=== PATIENT | male | born 1970 | race Two or more races ===

== ENCOUNTER 2016-10-03 11:55 | Emergency (ER) | payer OTHER ==
[~2016-10-03] VITALS: Ht 160 cm; Wt 72.6 kg
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
[2016-10-03] MEDS ORDERED: ATOR10TA PO (12:08)
[2016-10-03] MEDS ORDERED: LEVO88TA5 PO (12:08)
[2016-10-03] MEDS ORDERED: HYDROCODONE/APAP 5/325MG 1 EACH TABLET ONE (12:24)
[2016-10-03] MEDS ORDERED: HYDROCODONE/APAP 5/325MG 1 EACH TABLET PO ONE (12:30)
--- NOTE | 2016-10-03 13:10 | NUR ---
PATIENT CAME BACK FROM XRAY.
--- NOTE | 2016-10-03 13:37 | NUR ---
Patient is resting comfortably in bed with eyes closed. Easily aroused. VSS
--- NOTE | 2016-10-03 13:58 | NUR ---
DR SALGADO AT BS FOR AN UPDATE AND RE-EVAL.
--- NOTE | 2016-10-03 14:09 | NUR ---
Patient discharged to home in stable condition. Written and verbal after care instructions given. Patient verbalizes understanding of instruction.
[2016-10-03 14:11] VITALS: BP 107/70
== END 2016-10-03 14:12 | disposition home or self-care (01) ==
LOC: ER 11:57
DX: S16.1XXA Strain of muscle, fascia and tendon at neck level, initial encounter (principal); S20.211A Contusion of right front wall of thorax, initial encounter; R05 Cough; V43.52XA Car driver injured in collision with other type car in traffic accident, initial encounter; Y93.89 Activity, other specified; Y92.413 State road as the place of occurrence of the external cause; Y99.8 Other external cause status
CPT/HCPCS: 71100-TC; 72050-TC; A4606; Z7610

== ENCOUNTER 2017-01-06 14:23 | Emergency (ER) | payer OTHER ==
[~2017-01-06] VITALS: Ht 160 cm; Wt 68.0 kg
[~2017-01-06 14:23] MED LIST: ATOR10TA PO; LEVO88TA5 PO
[2017-01-06 14:30] VITALS: BP 100/60
== END 2017-01-06 15:56 | disposition home or self-care (01) ==
LOC: ER 14:25
DX: M25.562 Pain in left knee (principal); E03.9 Hypothyroidism, unspecified
CPT/HCPCS: 29505; 73564; 99284; A4606; Z7610

== ENCOUNTER 2017-08-05 23:22 | Emergency (ER) | payer OTHER ==
[~2017-08-05] VITALS: Ht 162.6 cm; Wt 68.0 kg
[2017-08-06 00:16] VITALS: BP 111/71
[2017-08-06] MEDS ORDERED: GUAIFENESIN/D-METHORPHAN HB 5 ML UDC PO ONE (01:00)
[2017-08-06] MEDS ORDERED: GUAIFENESIN 300 MG/15 ML UDC ONE (01:15)
== END 2017-08-06 02:06 | disposition home or self-care (01) ==
LOC: ER 23:24
DX: R05 Cough (principal); J02.9 Acute pharyngitis, unspecified; H11.89 Other specified disorders of conjunctiva; E05.90 Thyrotoxicosis, unspecified without thyrotoxic crisis or storm
CPT/HCPCS: 71045-TC; A4606; Z7610

== ENCOUNTER 2018-04-15 11:58 | Emergency (ER) | payer OTHER ==
[~2018-04-15] VITALS: Ht 152.4 cm; Wt 65.8 kg
[2018-04-15 12:11] VITALS: BP 100/67
== END 2018-04-15 13:10 | disposition home or self-care (01) ==
LOC: ER 12:03
DX: M67.431 Ganglion, right wrist (principal); E05.90 Thyrotoxicosis, unspecified without thyrotoxic crisis or storm
CPT/HCPCS: 29125; 99283; A4606; Z7610

== ENCOUNTER 2018-06-10 22:42 | Emergency (ER) | payer OTHER ==
[~2018-06-10] VITALS: Ht 157.5 cm; Wt 69.9 kg
--- NOTE | 2018-06-10 22:45 | NUR ---
PT PRESENTED TO THE ER WITH A C/O LT AND RT SIDED ABD PAIN SINCE 1499. PT STATED THAT HE HAS N/V/D. PT AMBULATED TO THE BATHROOM AND A URINE SAMPLE WAS OBTAINED.
[2018-06-10] MEDS ORDERED: KETOROLAC TROMETHAMINE INJ 30 MG/ML VIAL ONE (23:19)
[2018-06-10] MEDS ORDERED: ONDANSETRON HCL/PF 4 MG/2 ML VIAL ONE (23:19)
[2018-06-10 23:23] LABS: BASOPHILS # (AUTO) 0.1 /CMM (0.0-0.2); BASOPHILS % (AUTO) 0.7 % (0.0-2.0); EOSINOPHILS % (AUTO) 3.7 % (0.0-6.0); HEMATOCRIT 46 % (39-51); LYMPHOCYTES # (AUTO) 2.5 /CMM (0.8-4.8); LYMPHOCYTES % (AUTO) 32.1 % (20.0-44.0); MEAN CORPUSCULAR HGB CONC 35 g/dl (31.0-36.0); MEAN CORPUSCULAR VOLUME 94 fL (80-96); MONOCYTES # (AUTO) 0.8 /CMM (0.1-1.30); MONOCYTES % (AUTO) 11.1 % (2.0-12.0); NEUTROPHILS % (AUTO) 52.4 % (43.0-81.0); PLATELET COUNT (AUTO) 193 /CMM (150-450); RED BLOOD CELL COUNT(AUTO) 4.96 MIL/uL (4.5-6.0); WHITE BLOOD COUNT (AUTO) 7.7 K/uL (4.3-11.0)
[2018-06-10] MEDS: IV NS 0.9% 1,000 ML BAG IV ONE (23:24)
[2018-06-10] MEDS: KETOROLAC TROMETHAMINE INJ 30 MG/ML VIAL IV ONE (23:24)
[2018-06-10] MEDS: ONDANSETRON HCL/PF 4 MG/2 ML VIAL IVP ONE (23:24)
[2018-06-10 23:31] LABS: CALCIUM, SERUM 8.9 mg/dL (8.5-10.1); CREATININE 1.2 mg/dL (0.6-1.3); POTASSIUM 3.8 mmol/L (3.5-5.1)
[2018-06-10 23:38] LABS: ALBUMIN 3.8 g/dL (3.4-5.0); BILIRUBIN,DIRECT 0.2 mg/dL (0.0-0.2); BILIRUBIN,TOTAL 1.1 mg/dL (0.2-1.0); TOTAL PROTEIN, SERUM 7.6 g/dL (6.4-8.2)
[2018-06-11 00:35] LABS: APPEARANCE,URINE CLEAR (CLEAR); BILIRUBIN,URINE NEGATIVE (NEGATIVE); BLOOD, URINE NEGATIVE Ery/uL (NEGATIVE); COLOR,URINE YELLOW (YELLOW); KETONES,URINE NEGATIVE (NEGATIVE); LEUKOCYTE ESTERASE ,URINE NEGATIVE (NEGATIVE); NITRITE, URINE NEGATIVE (NEGATIVE); PROTEIN,URINE NEGATIVE (NEGATIVE); UGLUCOSE NEGATIVE (NEGATIVE); UROBILINOGEN,URINE 0.2 EU/dL (0.2)
--- NOTE | 2018-06-11 01:04 | NUR ---
PT RETURNED FROM CT.
[2018-06-11 01:57] VITALS: BP 117/72
== END 2018-06-11 01:58 | disposition home or self-care (01) ==
LOC: ER 22:44
DX: R10.31 Right lower quadrant pain (principal); R10.32 Left lower quadrant pain; R19.7 Diarrhea, unspecified; E05.90 Thyrotoxicosis, unspecified without thyrotoxic crisis or storm; Z79.899 Other long term (current) drug therapy
CPT/HCPCS: 36415; 80048-TC; 80076-TC; 81000-TC; 83690-TC; 85025-TC; A4606; J1885; J2405; J7030; Z7610

== ENCOUNTER 2018-06-17 23:02 | Emergency (ER) | payer OTHER ==
[~2018-06-17] VITALS: Ht 160 cm; Wt 72.6 kg
--- NOTE | 2018-06-18 01:30 | NUR ---
Pt wakled in c/o itchiness on his left eye. Pt reports he has cloudy vision. Both eyes look red. visual Check done by DAINA Schwarz. Pt is A, O/4, able to ambulate indepently, breathing spontaneously to RA.
[2018-06-18] MEDS ORDERED: TETRACAINE HCL/PF 0.5% UD 2 ML BOTTLE ONE (01:45)
[2018-06-18] MEDS ORDERED: TETRACAINE HCL/PF 0.5% UD 2 ML BOTTLE LEFTEYE ONE (02:00)
[2018-06-18] MEDS ORDERED: TONO PEN in ED SUPPLY ONICELL 1 EA MC ONE (02:00)
--- NOTE | 2018-06-18 03:00 | NUR ---
Pt needs higher level of care for cloudy vision per Dr. Avilez, will be referred to Opthalmologist. Awaiting transfer.
--- NOTE | 2018-06-18 03:20 | NUR ---
Pt sleeping, eaasily arousable, denies left eye pain or itchiness. Both eyes still appear red.
--- NOTE | 2018-06-18 06:00 | NUR ---
Pt ambulated to BR by himself.
--- NOTE | 2018-06-18 07:14 | NUR ---
Endorsed pt to DAINA Leslie, for DARREL.
[2018-06-18 07:59] VITALS: BP 127/85
--- NOTE | 2018-06-18 08:19 | NUR ---
Patient discharged to home in stable condition. Written and verbal after care instructions given. Patient verbalizes understanding of instruction. Informed patient to call PMD to get an authorization from his insurance to see Dr. Walton (opthalmologist) and amenable.
== END 2018-06-18 08:19 | disposition home or self-care (01) ==
LOC: ER 23:05
DX: H54.62 Unqualified visual loss, left eye, normal vision right eye (principal); E05.90 Thyrotoxicosis, unspecified without thyrotoxic crisis or storm
CPT/HCPCS: A4606; Z7610

== ENCOUNTER 2019-06-09 20:28 | Emergency (ER) | payer OTHER ==
[~2019-06-09] VITALS: Ht 157.5 cm; Wt 63.5 kg
--- NOTE | 2019-06-09 20:41 | NUR ---
SEEN AND EXAMINED BY ABEL HILLS
--- NOTE | 2019-06-09 20:41 | NUR ---
Estefania metz in ED - 06/09/19 at 2045 by YENIFER SEEN AND EXAMINED BY CLIFFORD
--- NOTE | 2019-06-09 20:45 | NUR ---
PT BIB FAMILY MEMBER TO ER C/O MIDSTERNAL CHEST PAIN THAT RADIATES TO HIS HEAD PT ALSO HAS A HEADACHE, AND REPORTS TINGLING FEELING IN BOTH ARM. PATIENT STATES THAT HE HAS BLURRY VISION. PATIENT IS CURRENTLY ON ISONIAZID SINCE YESTERDAY FOR A POSITIVE PPD. NO CHEST XRAY WERE TAKEN AUDIOLOGY DOCTOR. PATIENT IS AAOX4. NO SOB. BREATHING EVENLY AND UNLABORED. CONNECTED TO MONITOR
[2019-06-09] MEDS ORDERED: IV NS 0.9% 1,000 ML BAG IV ONE (21:00)
--- NOTE | 2019-06-09 21:11 | NUR ---
BLOOD DRAWN AND TAKEN BY NUCLEAR ENGINEERING TECHNICIAN TO LAB
[2019-06-09 21:24] LABS: BASOPHILS # (AUTO) 0.1 /CMM (0.0-0.2); BASOPHILS % (AUTO) 1.1 % (0.0-2.0); EOSINOPHILS % (AUTO) 5.7 % (0.0-6.0); HEMATOCRIT 46 % (39-51); HEMOGLOBIN 15.5 g/dL (13.5-17.5); LYMPHOCYTES # (AUTO) 2.7 /CMM (0.8-4.8); LYMPHOCYTES % (AUTO) 44.2 % (20.0-44.0); MEAN CORPUSCULAR HGB CONC 34 g/dl (31.0-36.0); MEAN CORPUSCULAR VOLUME 94 fL (80-96); MONOCYTES # (AUTO) 0.6 /CMM (0.1-1.30); MONOCYTES % (AUTO) 10.3 % (2.0-12.0); NEUTROPHILS # (AUTO) 2.4 /CMM (1.8-8.9); NEUTROPHILS % (AUTO) 38.7 % (43.0-81.0); PLATELET COUNT (AUTO) 216 /CMM (150-450); RED BLOOD CELL COUNT(AUTO) 4.87 MIL/uL (4.5-6.0); WHITE BLOOD COUNT (AUTO) 6.2 K/uL (4.3-11.0)
[2019-06-09] MEDS ORDERED: PYRIDOXINE HCL 50 MG TABLET PO ONE (21:30)
[2019-06-09 21:42] LABS: ALANINE AMINOTRANSFERASE 32 U/L (12-78); ALBUMIN 4.3 g/dL (3.4-5.0); ALKALINE PHOSPHATASE 63 U/L (46-116); ASPARTATE AMINOTRANSFERASE 31 U/L (15-37); BILIRUBIN,DIRECT 0.3 mg/dL (0.0-0.2); BILIRUBIN,TOTAL 1.4 mg/dL (0.2-1.0); CALCIUM, SERUM 9.1 mg/dL (8.5-10.1); CARBON DIOXIDE 32 mmol/L (21-32); CHLORIDE 105 mmol/L (98-107); CREATININE 1.1 mg/dL (0.6-1.3); GLUCOSE 148 mg/dL (74-106); POTASSIUM 4.1 mmol/L (3.5-5.1); SODIUM SERUM 143 mmol/L (136-145); TOTAL PROTEIN, SERUM 7.8 g/dL (6.4-8.2); UREA NITROGEN, BLOOD 10 mg/dL (7-18)
--- NOTE | 2019-06-09 22:29 | NUR ---
ABEL FURNITURE MAKER AT BEDSIDE FOR RE-EVALUATION OF PATIENT.
--- NOTE | 2019-06-09 22:59 | NUR ---
IV removed. Catheter intact and site benign. Pressure and 4x4 applied to site. No bleeding noted. patient discharged to home in stable condition. Written and verbal after care instructions given. Patient verbalizes understanding of instruction.
[2019-06-09 23:00] VITALS: BP 118/70
== END 2019-06-09 23:01 | disposition home or self-care (01) ==
LOC: ER 20:33
DX: R07.89 Other chest pain (principal); R51 Headache; T37.1X5A Adverse effect of antimycobacterial drugs, initial encounter; E03.9 Hypothyroidism, unspecified; F41.9 Anxiety disorder, unspecified; Z79.899 Other long term (current) drug therapy; Y92.89 Other specified places as the place of occurrence of the external cause
CPT/HCPCS: 36415; 71045; 80048; 80076; 84443; 84484; 85025; 85730; 93005; 99284; J7030 ×2

== ENCOUNTER 2019-07-24 18:16 | Emergency (ER) | payer OTHER ==
[~2019-07-24] VITALS: Ht 157.5 cm; Wt 72.6 kg
--- NOTE | 2019-07-24 18:19 | NUR ---
CAME IN FOR "Flu like symptoms/Cough/runny nose/fever/body aches/throat", TO ER BED 16, HOOKED TO PEDIATRIC CLINICAL NURSE SPECIALIST, CHANGED TO HOSP GOWN, COOLING MEASURES DONE. AWAITING MD MERRILL
--- NOTE | 2019-07-24 18:24 | NUR ---
SUZANNE HARRELL AT BEDSIDE
[2019-07-24] MEDS ORDERED: ACETAMINOPHEN 325 MG TABLET PO ONE (18:30)
[2019-07-24] MEDS ORDERED: ACETAMINOPHEN ES 500 MG TABLET ONE (18:41)
--- NOTE | 2019-07-24 18:47 | NUR ---
RAPID FLU SWAB SENT TO LAB
--- NOTE | 2019-07-24 19:52 | NUR ---
Patient discharged to home in stable condition. Written and verbal after care instructions given. Patient verbalizes understanding of instruction and RX. Pt afebrile. VSS. No acute distress noted. Pt ambulated home with .
[2019-07-24 19:53] VITALS: BP 112/72
== END 2019-07-24 19:54 | disposition home or self-care (01) ==
LOC: ER 18:16
DX: J10.1 Influenza due to other identified influenza virus with other respiratory manifestations (principal); E03.9 Hypothyroidism, unspecified; Z79.899 Other long term (current) drug therapy